=== PATIENT | male | born 1965 | race Two or more races ===

== ENCOUNTER 2017-04-29 20:14 | Inpatient (IN) | payer OTHER ==
[~2017-04-29] VITALS: Ht 177.8 cm; Wt 75.0 kg
[2017-04-29 23:29] VITALS: BP 123/87
[2017-04-29] MEDS ORDERED: PLAVIX75 MG PO (23:49)
[2017-04-29] MEDS ORDERED: SINGULAIR10 MG PO (23:50)
[2017-04-29] MEDS ORDERED: ADVAIR 100/501 DISK IH (23:51)
[2017-04-29] MEDS ORDERED: ASPIRIN325 MG PO (23:53)
[2017-04-29] MEDS ORDERED: AMBIEN5 MG PO (23:54)
[2017-04-30 07:40] VITALS: BP 95/60
[2017-04-30 09:50] VITALS: BP 119/85
[2017-04-30 15:42] VITALS: BP 139/85
[2017-05-01 07:47] VITALS: BP 119/75
[2017-05-01 15:48] VITALS: BP 106/67
[2017-05-02 07:37] VITALS: BP 98/61
[2017-05-02] MEDS ORDERED: NALTREXONE HCL50 MG PO (08:58)
== END 2017-05-02 12:10 | disposition home or self-care (01) | DRG 895 ==
LOC: 1WEST 20:14 → ENRESERV 20:32 → 1WEST 20:33
DX: F11.23 Opioid dependence with withdrawal (principal); R45.851 Suicidal ideations; F33.9 Major depressive disorder, recurrent, unspecified; F11.24 Opioid dependence with opioid-induced mood disorder; F14.10 Cocaine abuse, uncomplicated; Z65.3 Problems related to other legal circumstances; Z79.82 Long term (current) use of aspirin; Z79.02 Long term (current) use of antithrombotics/antiplatelets
CPT/HCPCS: 93971; 94640; 94640 76; 97165 GO; Q0169; Q0177